=== PATIENT | male | born 1940 | race Caucasian/White ===

== ENCOUNTER 2024-06-26 08:37 | Outpatient (CLI) | payer MEDICARE, BC ==
[2024-06-26 10:04] VITALS: PULSE 93; RESP 16; O2SAT 95
== END 2024-06-26 23:59 | disposition home or self-care (01) ==
LOC: RT 08:37
PROVIDERS: ATTEND Family Medicine
DX: R06.09 Other forms of dyspnea (principal); N18.31 Chronic kidney disease, stage 3a
CPT/HCPCS: 71046; 78582; 94010; 94760; A9539; A9540; J7030